=== PATIENT | male | born 1975 | race Two or more races ===

== ENCOUNTER 2023-07-27 10:25 | Emergency (ER) | payer OTHER ==
[~2023-07-27] VITALS: Ht 170.2 cm; Wt 74.8 kg
[2023-07-27] MEDS ORDERED: COZAAR50 MG PO (11:05)
[2023-07-27 13:03] LABS: HEMATOCRIT 40.3 % (39.0-48.0); HEMOGLOBIN 12.8 g/dL (13-16.00); MEAN CORPUSCULAR HGB CONC 31.9 g/dl (32.0-36.0); PLATELET COUNT 330 K/uL (150-450); RED BLOOD COUNT 6.11 M/uL (4.00-6.00)
[2023-07-27 13:04] LABS: MEAN CELL VOLUME 65.9 fL (80.0-100.00); PH,URINE 5.5 (5.0-8.0); URINE APPEARANCE Clear; URINE BILIRRUBIN Negative (NEGATIVE); URINE BLOOD Negative; URINE COLOR Yellow; URINE GLUCOSE Negative (NEGATIVE); URINE LEUKOCYTE Negative; URINE NITRATE Negative; URINE PROTEIN Negative (NEGATIVE); URINE UROBILINOGEN 0.2 E.U./dl
[2023-07-27 13:23] LABS: URINE BACTERIA 2.5 uL (0.0-1933); URINE RBC 0.1 uL (0.0-20.8); URINE WBC 0.7 uL (0.0-23.2)
[2023-07-27] MEDS ORDERED: DICLOFENAC SODI75 MG PO (14:02)
== END 2023-07-27 14:47 | disposition home or self-care (01) ==
LOC: ER 10:26
PROVIDERS: General Practice
DX: N50.812 Left testicular pain (principal); I86.1 Scrotal varices